=== PATIENT | male | born 1990 | race Caucasian/White ===

== ENCOUNTER 2017-08-29 23:25 | Emergency (ER) | payer BC ==
--- NOTE | 2017-08-30 00:29 | EDM.PDOC ---
ED HPI GENERAL MEDICAL PROBLEM - General Chief Complaint: Eye Problems Stated Complaint: EYE PROBLEM Time Seen by Provider: 08/30/17 00:15 Source of Information: Reports: Patient History Limitations: Reports: No Limitations - History of Present Illness INITIAL COMMENTS - FREE TEXT/NARRATIVE: 26 yo male presents with R eye pain that began about 10 pm tonight as he was getting ready for bed. Vision is normal. Does not wear contacts. 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 Onset: Today Onset Date: 08/29/17 Onset Time: 22:00 Duration: Minutes:, Constant Location: Reports: Face (R eye) Right Eye Pain Score (Numeric/FACES): 7 - Related Data Allergies Allergy/AdvReac Type Severity Reaction Status Date / Time No Known Allergies Allergy Verified 08/29/17 23:50 Home Meds: Home Meds NK [No Known Home Meds] 08/29/17 [History] Past Medical History - Past Health History Medical/Surgical History: Denies Medical/Surgical History Social & Family History - Family History Family Medical History: Noncontributory - Tobacco Use Smoking Status *Q: Never Smoker - Caffeine Use Caffeine Use: Reports: None - Recreational Drug Use Recreational Drug Use: No ED ROS GENERAL - Review of Systems Review Of Systems: See Below Constitutional: Reports: No Symptoms HEENT: Reports: Eye Pain. Denies: Eye Discharge Respiratory: Reports: No Symptoms ED EXAM GENERAL W FULL EYE - Physical Exam Exam: See Below Exam Limited By: No Limitations General Appearance: Alert, WD/WN, No Apparent Distress Eye Exam: Right Eye: Conjunctival Injection, Bilateral Eye: EOMI, PERRL Eyelids: Bilateral: Normal Appearance Conjunctiva & Sclera: Right: Injected Cornea Exam: Bilateral: Normal Appearance Extraocular Movements: Bilateral: Intact Ears: Normal External Exam, Normal Canal, Hearing Grossly Normal Nose: Normal Inspection, Normal Mucosa, No Blood Throat/Mouth: Normal Lips, Normal Voice, No Airway Compromise Head: Atraumatic, Normocephalic Neck: Normal Inspection Neurological: Alert, Oriented, CN II-XII Intact, Normal Cognition, No Motor/ Sensory Deficits Psychiatric: Normal Affect, Normal Mood Skin Exam: Warm, Dry, Intact, Normal Color, No Rash, Tattoo(s) ED EYE w/ Add Procedure - Eye Procedure Alcaine Drops Administered: Yes Progress: Fluorescein staining shows no corneal dye uptake. No purulent discharge. R lateral scleral injection. No FB's Course - Vital Signs Last Recorded V/S: Last Vital Signs Temp 36.8 C 08/29/17 23:45 Pulse 68 08/29/17 23:45 Resp 16 08/29/17 23:45 BP 113/62 08/29/17 23:45 Pulse Ox 98 08/29/17 23:45 Departure - Departure Time of Disposition: 00:35 Disposition: Home, Self-Care 01 Condition: Good Clinical Impression: Conjunctival abrasion Qualifiers: Encounter type: initial encounter Laterality: right Qualified Code(s): S05.01XA - Injury of conjunctiva and corneal abrasion without foreign body, right eye, initial encounter - Discharge Information Referrals: PCP,None [Primary Care Provider] - Forms: ED Department Discharge Additional Instructions: No eye rubbing. Take Delong as directed for pain relief. Recheck tomorrow if the eye is still bothering you.
[2017-08-30] MEDS ORDERED: Acetaminophen/HYDROcodone 325-5 MG Tab PO ONE (00:33)
== END 2017-08-30 00:40 | disposition home or self-care (01) ==
LOC: FB.ED 23:25
DX: S05.01XA Injury of conjunctiva and corneal abrasion without foreign body, right eye, initial encounter (principal); X58.XXXA Exposure to other specified factors, initial encounter
CPT/HCPCS: 99282; A9270

== ENCOUNTER 2022-05-30 18:55 | Emergency (ER) | payer OTHER ==
[2022-05-30] MEDS ORDERED: Lidocaine 2% Viscous Solution 15 ML UD PO ONE (19:17)
[2022-05-30] MEDS ORDERED: Lidocaine 2% Viscous Solution 15 ML UD ONE (19:18)
== END 2022-05-30 19:45 | disposition home or self-care (01) ==
LOC: FB.ED 18:55
DX: K08.89 Other specified disorders of teeth and supporting structures (principal)
CPT/HCPCS: 99283; A9270; 99281

== ENCOUNTER 2023-05-13 07:10 | Day surgery (SDC) | payer OTHER ==
[~2023-05-13 07:10] MED LIST: Lactated Ringers 1,000 ML IV SCH; Sodium Chloride 0.9% 10 ML Syringe FLUSH PRN; ceFAZolin 2 GM Vial IVPUSH ONE
[2023-05-13] MEDS ORDERED: Ondansetron 4 MG/2 ML SDV IVPUSH ONE (07:11)
[2023-05-13] MEDS ORDERED: Ketorolac 30 MG/ML SDV IVPUSH ONE (07:11)
[2023-05-13] MEDS ORDERED: Midazolam 1 MG/ML 2 ML SDV IV ONE (07:11)
[2023-05-13] MEDS ORDERED: Propofol 200 MG/20 ML SDV IV ONE ×2 (07:11)
[2023-05-13] MEDS ORDERED: fentaNYL 100 MCG/2 ML SDV IV ONE (07:11)
[2023-05-13] MEDS ORDERED: Lidocaine 1% with EPINEPHrine 1:100,000 20 ML MDV INJECT ONE (08:55)
[2023-05-13] MEDS ORDERED: Bupivacaine 0.5% 50 ML MDV INJECT ONE (08:55)
== END 2023-05-13 11:18 | disposition home or self-care (01) ==
LOC: FB.SDS 07:10
PROVIDERS: ATTEND Surgery
DX: K42.0 Umbilical hernia with obstruction, without gangrene (principal); E66.9 Obesity, unspecified; Z79.899 Other long term (current) drug therapy; Z68.37 Body mass index [BMI] 37.0-37.9, adult
CPT/HCPCS: 00750; 88302; J0690; J1885; J2250; J2405; J2704; J3010; J3490; J7120